=== PATIENT | male | born 1940 | race Caucasian/White ===

== ENCOUNTER 2020-02-06 15:57 | Inpatient (IN) ==
[2020-02-06] MEDS ORDERED: *HR* LORazepam 2 MG/ML VIAL IVP ONE (16:17)
[2020-02-06] MEDS ORDERED: 0.9 % Sodium Chloride 1,000 ML IVC ONE (16:17)
[2020-02-06 16:33] LABS: Basophils % 0.3 %; Eosinophils % 0.2 %; Hematocrit 31.2 % (37.5-50.1); Hemoglobin 10.4 g/dL (12.9-16.9); Lymphocytes # 0.9 K/mcL (0.6-4.6); Mean Corpuscular HGB Conc 33.3 g/dL (31.6-35.5); Mean Corpuscular Volume 92.9 fL (83.0-100.0); Mean Platelet Volume 10.2 fL (9.4-12.4); Monocytes # 0.9 K/mcL (0.0-1.3); Neutrophils # 9.5 K/mcL (1.6-8.9); Platelet Count 305 K/mcL (140-400); Red Blood Count 3.36 M/mcL (4.19-5.50); Red Cell Distribution Width 13.9 % (11.5-14.5); Segmented Neutrophils % 82.5 %; White Blood Count 11.5 K/mcL (4.3-11.1)
[2020-02-06 16:41] LABS: Bilirubin,Urine Negative (Negative); Blood,Urine Small (Negative); Clarity,Urine Slightly Cloudy (Clear); Color,Urine Yellow (Yellow); Glucose,Urine (UA) Normal (Normal); Ketones,Urine Negative (Negative); Leukocyte Esterase,Urine Negative (Negative); Nitrite,Urine Negative (Negative); Protein,Urine 30 mg/dL (Neg-Trace); Urobilinogen,Urine Normal (Normal)
[2020-02-06] MEDS ORDERED: Acetaminophen 650 MG RECTAL SUPP RC ONE (16:43)
[2020-02-06 16:50] LABS: Amorphous Sediment,Urine Few per hpf (None-Few); Bacteria,Urine Moderate per hpf (None-Few); Squamous Epithelial Cell,Urine Few per hpf (None-Few); WBC,Urine 0-3 per hpf (0-3)
[2020-02-06 16:51] LABS: Alanine Aminotransferase 12 Units/L (7-52); Albumin 3.4 g/dL (3.5-5.7); Albumin/Globulin Ratio 0.9 (1.1-2.2); Alkaline Phosphatase 89 Units/L (34-104); Aspartate Amino Transferase 25 Units/L (13-39); BUN/Creatinine Ratio 21 (6-26); Bilirubin,Direct 0.3 mg/dL (0.0-0.2); Bilirubin,Indirect 0.9 mg/dL (0.0-1.0); Bilirubin,Total 1.2 mg/dL (0.3-1.0); Blood Urea Nitrogen 16 mg/dL (8-23); Calcium 8.7 mg/dL (8.6-10.3); Carbon Dioxide 25 mEq/L (23-29); Chloride 100 mEq/L (98-107); Globulin 3.8 g/dL (2.4-3.5); Glucose 98 mg/dL (70-105); Osmolality,Calculated 283 (280-300); Potassium 4.4 mEq/L (3.5-5.1); Sodium 136 mEq/L (136-145); Total Protein 7.2 g/dL (6.4-8.9); eGFR For African Americans > 60 (> 60); eGFR For Non-African Americans > 60 (> 60)
[2020-02-06] MEDS ORDERED: Azithromycin 500 MG in 0.9 % Sodium Chloride 250 ML IVPB ONE (19:00)
[2020-02-06 19:38] LABS: Adenovirus Not Detected (Not Detect); Bordetella Pertussis Not Detected (Not Detect); Chlamydophila pneumoniae Not Detected (Not Detect); Coronavirus 229E Not Detected (Not Detect); Coronavirus HKU1 Not Detected (Not Detect); Coronavirus NL63 Not Detected (Not Detect); Coronavirus OC43 Not Detected (Not Detect); Human Metapneumovirus Not Detected (Not Detect); Human Rhinovirus/Enterovirus Not Detected (Not Detect); Influenza A Subtype 2009 H1 Not Detected (Not Detect); Influenza B Not Detected (Not Detect); Mycoplasma pneumoniae Not Detected (Not Detect); Parainfluenza Virus 1 Not Detected (Not Detect); Parainfluenza Virus 2 Not Detected (Not Detect); Parainfluenza Virus 3 Not Detected (Not Detect); Parainfluenza Virus 4 Not Detected (Not Detect); Respiratory Syncytial Virus Not Detected (Not Detect)
[2020-02-06] MEDS ORDERED: Naloxone 0.4 MG/ML INJ IVP PRN (21:31)
[2020-02-06] MEDS: QUEtiapine Fumarate 100 MG TABLET PO SCH (22:33)
[2020-02-06] MEDS: 0.9 % Sodium Chloride 1,000 ML IVC SCH (22:34)
[2020-02-07] MEDS: *HR* Metoprolol 5 MG/5 ML VIAL IVP PRN ×3 (03:14→05:17)
[2020-02-07] MEDS: 0.9 % Sodium Chloride 1,000 ML IVC SCH ×4 (03:21→16:02)
[2020-02-07] MEDS: Acetaminophen 325 MG TABLET PO PRN ×2 (05:17→15:18)
[2020-02-07] MEDS: Finasteride 5 MG TABLET PO SCH (08:26)
[2020-02-07] MEDS ORDERED: cefTRIAXone 1,000 MG in 0.9 % Sodium Chloride Mini Bag 100 ML IVPB SCH (09:00)
[2020-02-07] MEDS ORDERED: *HR* LORazepam 2 MG/ML VIAL IVP ONE (10:20)
[2020-02-07] MEDS ORDERED: Haloperidol Lactate 5 MG/ML VIAL IM ONE (12:25)
[2020-02-07] MEDS: Piperacillin/Tazobactam 3.375 GM in 0.9 % Sodium Chloride Mini Bag 100 ML IVPB SCH ×2 (12:29→19:40)
[2020-02-07] MEDS ORDERED: *HR* Heparin 5,000 UNIT/ML VIAL SQ SCH (14:00)
[2020-02-07] MEDS ORDERED: Ziprasidone 10 MG in Water for inj. (sterile) 0.5 ML IM ONE (14:28)
[2020-02-07] MEDS ORDERED: 0.9 % Sodium Chloride 250 ML IV ONE (15:25)
[2020-02-07] MEDS ORDERED: 0.9 % Sodium Chloride 250 ML ONE (15:27)
[2020-02-07] MEDS: *HR* Enoxaparin 80 MG/0.8 ML SYRINGE SQ SCH (18:08)
[2020-02-07] MEDS: Azithromycin 500 MG in 0.9 % Sodium Chloride 250 ML IVPB SCH (19:41)
[2020-02-07] MEDS: QUEtiapine Fumarate 100 MG TABLET PO SCH (19:42)
[2020-02-07] MEDS ORDERED: Ziprasidone 20 MG in Water for inj. (sterile) 1 ML IM ONE (23:55)
[2020-02-08] MEDS: Piperacillin/Tazobactam 3.375 GM in 0.9 % Sodium Chloride Mini Bag 100 ML IVPB SCH ×3 (04:31→20:45)
[2020-02-08] MEDS: *HR* Enoxaparin 80 MG/0.8 ML SYRINGE SQ SCH ×2 (06:43→18:56)
[2020-02-08 08:42] LABS: Basophils % 0.3 %; Eosinophils # 0.1 K/mcL (0.0-0.6); Eosinophils % 0.9 %; Hemoglobin 9.1 g/dL (12.9-16.9); Immature Granulocytes % 0.6 % (0-4); Lymphocytes # 0.8 K/mcL (0.6-4.6); Lymphocytes % 8.4 %; Mean Corpuscular HGB Conc 31.4 g/dL (31.6-35.5); Mean Corpuscular Hemoglobin 30.1 pg (28.0-33.3); Mean Platelet Volume 10.3 fL (9.4-12.4); Monocytes % 9.9 %; Neutrophils # 7.8 K/mcL (1.6-8.9); Platelet Count 245 K/mcL (140-400); Red Blood Count 3.02 M/mcL (4.19-5.50); Red Cell Distribution Width 14.7 % (11.5-14.5); Segmented Neutrophils % 79.9 %; White Blood Count 9.7 K/mcL (4.3-11.1)
[2020-02-08 08:57] LABS: BUN/Creatinine Ratio 24 (6-26); Blood Urea Nitrogen 18 mg/dL (8-23); Carbon Dioxide 23 mEq/L (23-29); Chloride 109 mEq/L (98-107); Glucose 74 mg/dL (70-105); Osmolality,Calculated 295 (280-300); Potassium 3.5 mEq/L (3.5-5.1); Sodium 142 mEq/L (136-145); eGFR For African Americans > 60 (> 60); eGFR For Non-African Americans > 60 (> 60)
[2020-02-08] MEDS: Finasteride 5 MG TABLET PO SCH (09:09)
[2020-02-08] MEDS ORDERED: 0.9 % Sodium Chloride 500 ML IVC ONE (11:26)
[2020-02-08] MEDS ORDERED: 0.9 % Sodium Chloride 1,000 ML ONE (11:42)
[2020-02-08] MEDS ORDERED: 0.9 % Sodium Chloride 1,000 ML IVC ONE (12:00)
[2020-02-08] MEDS ORDERED: Perflutren Lipid Microsphere 1.3 ML in 0.9 % Sodium Chloride 8.7 ML IVP PRN (14:17)
[2020-02-08] MEDS ORDERED: Isovue-370 500 ML BOTTLE IVP ONE ×2 (14:24→15:29)
[2020-02-08] MEDS: Albuterol 2.5 MG/3 ML NEBULIZER IH SCH ×2 (16:51→22:32)
[2020-02-08] MEDS: Azithromycin 500 MG in 0.9 % Sodium Chloride 250 ML IVPB SCH (18:52)
[2020-02-08] MEDS: 0.9 % Sodium Chloride 1,000 ML IVC SCH (18:53)
[2020-02-08] MEDS: QUEtiapine Fumarate 100 MG TABLET PO SCH (20:44)
[2020-02-09] MEDS: Albuterol 2.5 MG/3 ML NEBULIZER IH SCH ×4 (04:30→22:44)
[2020-02-09] MEDS: Piperacillin/Tazobactam 3.375 GM in 0.9 % Sodium Chloride Mini Bag 100 ML IVPB SCH ×3 (04:30→20:28)
[2020-02-09] MEDS: 0.9 % Sodium Chloride 1,000 ML IVC SCH (04:30)
[2020-02-09] MEDS: *HR* Enoxaparin 80 MG/0.8 ML SYRINGE SQ SCH ×2 (05:53→16:34)
[2020-02-09 07:02] LABS: Basophils % 0.4 %; Eosinophils % 0.4 %; Hematocrit 29.3 % (37.5-50.1); Hemoglobin 9.4 g/dL (12.9-16.9); Immature Granulocytes % 0.8 % (0-4); Lymphocytes # 1.2 K/mcL (0.6-4.6); Lymphocytes % 15.8 %; Mean Corpuscular HGB Conc 32.1 g/dL (31.6-35.5); Mean Corpuscular Hemoglobin 30.7 pg (28.0-33.3); Mean Corpuscular Volume 95.8 fL (83.0-100.0); Mean Platelet Volume 10.6 fL (9.4-12.4); Monocytes # 0.8 K/mcL (0.0-1.3); Monocytes % 10.3 %; Neutrophils # 5.3 K/mcL (1.6-8.9); Platelet Count 269 K/mcL (140-400); Red Blood Count 3.06 M/mcL (4.19-5.50); Segmented Neutrophils % 72.3 %; White Blood Count 7.3 K/mcL (4.3-11.1)
[2020-02-09 07:08] LABS: Alanine Aminotransferase 11 Units/L (7-52); Albumin 2.7 g/dL (3.5-5.7); Albumin/Globulin Ratio 0.8 (1.1-2.2); Alkaline Phosphatase 65 Units/L (34-104); Aspartate Amino Transferase 23 Units/L (13-39); BUN/Creatinine Ratio 18 (6-26); Bilirubin,Total 0.6 mg/dL (0.3-1.0); Blood Urea Nitrogen 12 mg/dL (8-23); Calcium 8.1 mg/dL (8.6-10.3); Carbon Dioxide 22 mEq/L (23-29); Chloride 111 mEq/L (98-107); Globulin 3.2 g/dL (2.4-3.5); Glucose 87 mg/dL (70-105); Osmolality,Calculated 297 (280-300); Potassium 3.3 mEq/L (3.5-5.1); Sodium 144 mEq/L (136-145); Total Protein 5.9 g/dL (6.4-8.9); eGFR For African Americans > 60 (> 60); eGFR For Non-African Americans > 60 (> 60)
[2020-02-09] MEDS: Finasteride 5 MG TABLET PO SCH (07:48)
[2020-02-09] MEDS: Azithromycin 500 MG in 0.9 % Sodium Chloride 250 ML IVPB SCH (17:38)
[2020-02-09] MEDS: QUEtiapine Fumarate 100 MG TABLET PO SCH (20:27)
[2020-02-10] MEDS: Piperacillin/Tazobactam 3.375 GM in 0.9 % Sodium Chloride Mini Bag 100 ML IVPB SCH ×3 (04:23→19:34)
[2020-02-10] MEDS: Albuterol 2.5 MG/3 ML NEBULIZER IH SCH ×4 (04:34→21:38)
[2020-02-10 05:56] LABS: Basophils % 0.5 %; Eosinophils # 0.1 K/mcL (0.0-0.6); Hematocrit 30.2 % (37.5-50.1); Hemoglobin 9.5 g/dL (12.9-16.9); Lymphocytes # 1.2 K/mcL (0.6-4.6); Lymphocytes % 19.1 %; Mean Corpuscular HGB Conc 31.5 g/dL (31.6-35.5); Mean Corpuscular Hemoglobin 30.4 pg (28.0-33.3); Mean Corpuscular Volume 96.8 fL (83.0-100.0); Mean Platelet Volume 10.4 fL (9.4-12.4); Monocytes # 0.6 K/mcL (0.0-1.3); Monocytes % 10.4 %; Neutrophils # 4.1 K/mcL (1.6-8.9); Platelet Count 274 K/mcL (140-400); Red Blood Count 3.12 M/mcL (4.19-5.50); Red Cell Distribution Width 14.9 % (11.5-14.5)
[2020-02-10] MEDS: *HR* Enoxaparin 80 MG/0.8 ML SYRINGE SQ SCH (05:58)
[2020-02-10 06:16] LABS: BUN/Creatinine Ratio 16 (6-26); Blood Urea Nitrogen 11 mg/dL (8-23); Calcium 8.4 mg/dL (8.6-10.3); Carbon Dioxide 26 mEq/L (23-29); Chloride 112 mEq/L (98-107); Glucose 85 mg/dL (70-105); Osmolality,Calculated 299 (280-300); Potassium 3.8 mEq/L (3.5-5.1); Sodium 145 mEq/L (136-145); eGFR For African Americans > 60 (> 60); eGFR For Non-African Americans > 60 (> 60)
[2020-02-10] MEDS: Finasteride 5 MG TABLET PO SCH (08:42)
[2020-02-10] MEDS ORDERED: Saline Nasal Spray 44 ML BOTTLE NS PRN (16:07)
[2020-02-10] MEDS ORDERED: Azithromycin 250 MG TABLET PO SCH (19:00)
[2020-02-10] MEDS: QUEtiapine Fumarate 100 MG TABLET PO SCH (19:34)
[2020-02-10] MEDS: Haloperidol Lactate 5 MG/ML VIAL IVP PRN (23:33)
[2020-02-11] MEDS: *HR* Metoprolol 5 MG/5 ML VIAL IVP PRN (01:30)
[2020-02-11] MEDS: Haloperidol Lactate 5 MG/ML VIAL IVP PRN (03:46)
[2020-02-11] MEDS: Piperacillin/Tazobactam 3.375 GM in 0.9 % Sodium Chloride Mini Bag 100 ML IVPB SCH ×3 (03:47→20:16)
[2020-02-11] MEDS: Albuterol 2.5 MG/3 ML NEBULIZER IH SCH ×4 (05:03→22:21)
[2020-02-11 06:35] LABS: Basophils # 0.1 K/mcL (0.0-0.2); Basophils % 0.9 %; Eosinophils # 0.1 K/mcL (0.0-0.6); Eosinophils % 0.9 %; Hematocrit 30.7 % (37.5-50.1); Hemoglobin 9.7 g/dL (12.9-16.9); Immature Granulocytes % 2.1 % (0-4); Lymphocytes # 1.2 K/mcL (0.6-4.6); Lymphocytes % 16.7 %; Mean Corpuscular HGB Conc 31.6 g/dL (31.6-35.5); Mean Corpuscular Hemoglobin 30.5 pg (28.0-33.3); Mean Corpuscular Volume 96.5 fL (83.0-100.0); Mean Platelet Volume 10.6 fL (9.4-12.4); Monocytes # 0.8 K/mcL (0.0-1.3); Neutrophils # 4.8 K/mcL (1.6-8.9); Platelet Count 299 K/mcL (140-400); Red Blood Count 3.18 M/mcL (4.19-5.50); Segmented Neutrophils % 68.4 %
[2020-02-11 06:53] LABS: BUN/Creatinine Ratio 16 (6-26); Blood Urea Nitrogen 11 mg/dL (8-23); Calcium 8.2 mg/dL (8.6-10.3); Carbon Dioxide 25 mEq/L (23-29); Chloride 110 mEq/L (98-107); Glucose 81 mg/dL (70-105); Osmolality,Calculated 298 (280-300); Potassium 3.5 mEq/L (3.5-5.1); Sodium 145 mEq/L (136-145); eGFR For African Americans > 60 (> 60); eGFR For Non-African Americans > 60 (> 60)
[2020-02-11] MEDS: Furosemide 20 MG TABLET PO SCH (07:59)
[2020-02-11] MEDS: lisinopriL 5 MG TABLET PO SCH (07:59)
[2020-02-11] MEDS: Finasteride 5 MG TABLET PO SCH (08:00)
[2020-02-11] MEDS: Aspirin Enteric Coated 81 MG Tablet PO SCH (08:00)
[2020-02-11] MEDS: QUEtiapine Fumarate 100 MG TABLET PO SCH (20:14)
[2020-02-12] MEDS: Haloperidol Lactate 5 MG/ML VIAL IVP PRN (00:29)
[2020-02-12] MEDS: Albuterol 2.5 MG/3 ML NEBULIZER IH SCH ×3 (04:20→11:50)
[2020-02-12] MEDS: Piperacillin/Tazobactam 3.375 GM in 0.9 % Sodium Chloride Mini Bag 100 ML IVPB SCH ×2 (05:25→12:07)
[2020-02-12] MEDS: Furosemide 20 MG TABLET PO SCH (08:27)
[2020-02-12] MEDS: lisinopriL 5 MG TABLET PO SCH (08:27)
[2020-02-12] MEDS: Aspirin Enteric Coated 81 MG Tablet PO SCH (08:27)
[2020-02-12] MEDS: Finasteride 5 MG TABLET PO SCH (08:28)
[2020-02-12 10:19] VITALS: BP 128/84
== END 2020-02-12 13:06 | DRG 871 ==
LOC: EMEROOPIK 15:57 → INPPIK 15:57
PROVIDERS: ADMIT Family Medicine; ATTEND Family Medicine

== ENCOUNTER 2020-04-14 10:52 | Observation (INO) ==
[2020-04-14 11:35] LABS: Basophils # 0.1 K/mcL (0.0-0.2); Basophils % 1.4 %; Eosinophils # 0.1 K/mcL (0.0-0.6); Eosinophils % 1.9 %; Hematocrit 30.4 % (37.5-50.1); Hemoglobin 9.9 g/dL (12.9-16.9); Immature Granulocytes % 0.5 % (0-4); Lymphocytes # 1.3 K/mcL (0.6-4.6); Lymphocytes % 35.1 %; Mean Corpuscular HGB Conc 32.6 g/dL (31.6-35.5); Mean Corpuscular Hemoglobin 32.1 pg (28.0-33.3); Mean Corpuscular Volume 98.7 fL (83.0-100.0); Mean Platelet Volume 10.3 fL (9.4-12.4); Monocytes # 0.6 K/mcL (0.0-1.3); Monocytes % 15.1 %; Neutrophils # 1.7 K/mcL (1.6-8.9); Platelet Count 232 K/mcL (140-400); Red Blood Count 3.08 M/mcL (4.19-5.50); Red Cell Distribution Width 16.5 % (11.5-14.5); White Blood Count 3.7 K/mcL (4.3-11.1)
[2020-04-14 11:57] LABS: Activated Partial Thrombo Time 27.4 Seconds (26.0-36.0); Prothrombin Time 11.7 Seconds (9.4-12.1); Troponin I < 0.03 ng/mL (< 0.04)
[2020-04-14 12:00] LABS: Alanine Aminotransferase 5 Units/L (7-52); Albumin 3.1 g/dL (3.5-5.7); Albumin/Globulin Ratio 0.9 (1.1-2.2); Alkaline Phosphatase 109 Units/L (34-104); Aspartate Amino Transferase 17 Units/L (13-39); BUN/Creatinine Ratio 15 (6-26); Bilirubin,Total 0.6 mg/dL (0.3-1.0); Blood Urea Nitrogen 13 mg/dL (8-23); Calcium 8.2 mg/dL (8.6-10.3); Carbon Dioxide 31 mEq/L (23-29); Chloride 100 mEq/L (98-107); Globulin 3.4 g/dL (2.4-3.5); Glucose 190 mg/dL (70-105); Osmolality,Calculated 291 (280-300); Potassium 3.9 mEq/L (3.5-5.1); Sodium 138 mEq/L (136-145); Total Protein 6.5 g/dL (6.4-8.9); eGFR For African Americans > 60 (> 60); eGFR For Non-African Americans > 60 (> 60)
[2020-04-14 12:07] LABS: Bilirubin,Urine Moderate (Negative); Blood,Urine Trace-intact (Negative); Clarity,Urine Clear (Clear); Color,Urine Amber (Yellow); Glucose,Urine (UA) 100 mg/dL (Normal); Ketones,Urine Trace mg/dL (Negative); Leukocyte Esterase,Urine Negative (Negative); Nitrite,Urine Negative (Negative); PH,Urine 5.5 pH Units (5.0-8.0); Protein,Urine 30 mg/dL (Neg-Trace); Specific Gravity,Urine 1.025 (1.010-1.025); Urobilinogen,Urine Normal (Normal)
[2020-04-14 12:21] LABS: Amorphous Sediment,Urine Moderate per hpf (None-Few); Bacteria,Urine Few per hpf (None-Few); Hyaline Casts,Urine Few per lpf (None Seen); Mucus,Urine Moderate per lpf (None-Few); RBC,Urine 0-3 per hpf (0-3); Renal Epithelial Cells,Urine Few per hpf (None-Few); Squamous Epithelial Cell,Urine Few per hpf (None-Few)
[2020-04-14] MEDS: 0.9 % Sodium Chloride 1,000 ML IVC SCH ×2 (12:36→14:10)
[2020-04-14] MEDS ORDERED: Acetaminophen 325 MG TABLET PO PRN (14:53)
[2020-04-14] MEDS ORDERED: Naloxone 0.4 MG/ML INJ IVP PRN (14:53)
[2020-04-14] MEDS ORDERED: Ondansetron ODT 4 MG TAB.RAPDIS SL PRN (14:53)
[2020-04-14] MEDS ORDERED: 0.9 % Sodium Chloride 1,000 ML IVC SCH (15:00)
[2020-04-14] MEDS: Lactobacillus 1 EACH CAP.SPRINK PO SCH (18:19)
[2020-04-14] MEDS ORDERED: QUEtiapine Fumarate 100 MG TABLET PO SCH (21:00)
[2020-04-14] MEDS: Albuterol 2.5 MG/3 ML NEBULIZER IH SCH (22:07)
[2020-04-15] MEDS: Albuterol 2.5 MG/3 ML NEBULIZER IH SCH ×2 (05:01→09:24)
[2020-04-15 07:27] VITALS: BP 126/64
[2020-04-15 08:05] LABS: Hematocrit 27.8 % (37.5-50.1); Mean Corpuscular HGB Conc 32.4 g/dL (31.6-35.5); Mean Corpuscular Hemoglobin 31.9 pg (28.0-33.3); Mean Corpuscular Volume 98.6 fL (83.0-100.0); Mean Platelet Volume 10.8 fL (9.4-12.4); Platelet Count 176 K/mcL (140-400); Red Blood Count 2.82 M/mcL (4.19-5.50); Red Cell Distribution Width 16.6 % (11.5-14.5); White Blood Count 4.3 K/mcL (4.3-11.1)
[2020-04-15 08:30] LABS: BUN/Creatinine Ratio 13 (6-26); Blood Urea Nitrogen 8 mg/dL (8-23); Calcium 7.6 mg/dL (8.6-10.3); Carbon Dioxide 27 mEq/L (23-29); Chloride 104 mEq/L (98-107); Glucose 92 mg/dL (70-105); Magnesium 1.7 mg/dL (1.6-2.6); Osmolality,Calculated 284 (280-300); Potassium 3.3 mEq/L (3.5-5.1); Sodium 138 mEq/L (136-145); eGFR For African Americans > 60 (> 60); eGFR For Non-African Americans > 60 (> 60)
[2020-04-15] MEDS ORDERED: Potassium Chloride Elixir 20 MEQ/15 ML UDC PO ONE (08:38)
[2020-04-15] MEDS ORDERED: Furosemide 20 MG TABLET PO SCH (09:00)
[2020-04-15] MEDS ORDERED: Aspirin Enteric Coated 81 MG Tablet PO SCH (09:00)
[2020-04-15] MEDS ORDERED: Finasteride 5 MG TABLET PO SCH (09:00)
[2020-04-15] MEDS: Lactobacillus 1 EACH CAP.SPRINK PO SCH (09:48)
== END 2020-04-15 11:02 ==
LOC: INPPIK 10:52 → EMEROOPIK 10:52 → INPPIK 15:16
PROVIDERS: ADMIT Family Medicine; ATTEND Family Medicine